=== PATIENT | female | born 1990 | race Two or more races ===

== ENCOUNTER 2016-11-20 08:40 | Emergency (ER) ==
[2016-11-20 08:48] VITALS: BP 123/81; TEMP 98.7; BMI 31.7
--- NOTE | 2016-11-20 09:27 | ED.PDOC ---
General ED Provider: Dr. VIC NOGUEIRA Chief Complaint: Abdominal Pain Stated Complaint: left flank pain x 4 days, began as left inguinal pain 2 weeks ago then migrated up to flank 4 days ago. No dysuria but urine is unusually dark. Nausea, no emesis, no diarrhea. No fever or chills. "Borderline" positive preg test at home, then negative one at health dept, then positive at home. Time Seen by Physician: 09:15 Mode of Arrival: Walk-In Information Source: Patient Exam Limitations: No limitations [facility] Nursing and Triage Documentation Reviewed and Agree: Yes Complaint Exam - Complaint/Exam Patient Complains of: Reports: Pain (in left flank) Onset/Duration: 4 days Symptoms Are: Still present (began as left inguinal pain 2 weeks ago) Timing: Constant Episodes of Voiding Over Last 12 Hours: 4 Initial Severity: Mild Current Severity: Moderate (4/10 pain) Location of Pain: Reports: Left, Flank Character: Reports: Dull Aggravating: Reports: None Alleviating: Reports: Medications (Tylenol and ibuprofen ease pain for a few hours) Associated Signs and Symptoms: Reports: Nausea. Denies: Vomiting Ovarian Torsion Risk Factors: Reports: None Surgical Obstruction Risk Factors: Reports: None RH Status: Unknown Related Surgical History: Reports: None Abdominal Findings: Present: None Differential Diagnoses: Ureteral Stone, UTI (early pyelonephritis) Review of Systems - Review Of Systems Constitutional: Reports: No symptoms Respiratory: Reports: No symptoms Cardiac: Reports: No symptoms GI: Reports: Nausea : Reports: Flank pain, Other (last full menses in early September, spotted for 4 days first week of October) Musculoskeletal: Reports: No symptoms Skin: Reports: No symptoms Neurological: Reports: No symptoms All Other Systems: Reviewed and Negative Past Medical History - Past Medical History Previously Healthy: Yes Endocrine: Reports: None Cardiovascular: Reports: None Respiratory: Reports: None Hematological: Reports: None Gastrointestinal: Reports: None Genitourinary: Reports: None Neuro/Psych: Reports: None Musculoskeletal: Reports: None Cancer: Reports: None Last Menstrual Period: oct 2016 - Surgical History General Surgical History: Reports: None - Family History Family History: Reports: Unknown - Social History Smoking Status: Former smoker Hx Substance Use: No Alcohol Screening: None Lives: Alone - Immunizations Tetanus Shot up to Date: No Influenza Vaccine within 12 Months: No Pneumococcal Vaccine up to Date: No Physical Exam - Physical Exam Appearance: Well-appearing, Well-nourished Ill-appearing: None Pain Distress: Mild Respiratory: Airway patent, Breath sounds clear, Breath sounds equal, Respirations nonlabored Cardiovascular: RRR, Pulses normal, No rub, No murmur GI/: Soft, Nontender (Bimanual exam: no masses or tenderness, negative chandelier's sign), No masses, Bowel sounds normal, No Organomegaly Musculoskeletal: Normal strength, ROM intact, No edema, No calf tenderness Skin: Warm, Dry, Normal color Neurological: Sensation intact, Motor intact, Reflexes intact, Cranial nerves intact, Alert, Oriented Psychiatric: Affect appropriate, Mood appropriate Critical Care Note - Critical Care Note Total Time (mins): 0 Course - Course Hematology/Chemistry: 11/20/16 09:42 11/20/16 09:42 Orders, Labs, Meds: Lab Review 11/20/16 11/20/16 11/20/16 08:55 09:42 09:42 WBC 7.54 RBC 4.31 Hgb 13.3 Hct 38.1 MCV 88.4 MCH 30.9 MCHC 34.9 RDW Coeff of Christopher 12.5 Plt Count 212 Immature Gran % (Auto) 0.3 Neut % (Auto) 57.8 Lymph % (Auto) 31.2 [place] % (Auto) 9.2 Eos % (Auto) 0.8 Baso % (Auto) 0.7 Immature Gran # (Auto) 0.0 Neut # 4.4 Lymph # 2.4 [place] # 0.7 Eos # 0.1 Baso # 0.1 Sodium 139 Potassium 3.5 Chloride 106 Carbon Dioxide 26 Anion Gap 10.5 BUN 8 Creatinine 0.81 Estimated GFR (MDRD) 85.00 BUN/Creatinine Ratio 9.87 Glucose 89 Calcium 9.3 Total Bilirubin 0.42 AST 28 ALT 45 Alkaline Phosphatase 81 Total Protein 7.0 Albumin 3.6 Globulin 3.4 Albumin/Globulin Ratio 1.06 Serum , Qual Urine Color Yellow Urine Clarity Clear Urine pH 7.0 Ur Specific [place] 1.020 Urine Protein Negative Urine Glucose (UA) Negative Urine Ketones Negative Urine Blood Trace-intact Urine Nitrite Negative Urine Bilirubin Negative Urine Urobilinogen 0.2 Ur Leukocyte Esterase Negative Urine Microscopic RBC 0-2 Ur Squamous Epith Cells 0-2 11/20/16 09:42 WBC RBC Hgb Hct MCV MCH MCHC RDW Coeff of Christopher Plt Count Immature Gran % (Auto) Neut % (Auto) Lymph % (Auto) [place] % (Auto) Eos % (Auto) Baso % (Auto) Immature Gran # (Auto) Neut # Lymph # [place] # Eos # Baso # Sodium Potassium Chloride Carbon Dioxide Anion Gap BUN Creatinine Estimated GFR (MDRD) BUN/Creatinine Ratio Glucose Calcium Total Bilirubin AST ALT Alkaline Phosphatase Total Protein Albumin Globulin Albumin/Globulin Ratio Serum , Qual Positive Urine Color Urine Clarity Urine pH Ur Specific [place] Urine Protein Urine Glucose (UA) Urine Ketones Urine Blood Urine Nitrite Urine Bilirubin Urine Urobilinogen Ur Leukocyte Esterase Urine Microscopic RBC Ur Squamous Epith Cells Orders Category Date Time Status CBC W/ AUTO DIFF Stat LAB 11/20/16 09:42 Completed COMPREHENSIVE METABOLIC PANEL Stat LAB 11/20/16 09:42 Completed SERUM TEST [SERUM ] Stat LAB 11/20/16 09:42 Completed URINALYSIS C & S IF INDICATED Stat LAB 11/20/16 08:55 Completed Vital Signs: Temp Pulse Resp BP Pulse Ox 11/20/16 08:41 98.7 F 83 20 123/81 98 Departure - Departure Time of Disposition: 11:00 Disposition: HOME SELF-CARE Discharge Problem: Left flank pain Qualifiers: Weeks of gestation: less than 8 weeks Qualified Code(s): Z3A.01 - Less than 8 weeks gestation of Instructions: Flank Pain (ED) Condition: Good Pt referred to PMD for follow-up: Yes (Follow up with doctor if no better in 3 days and 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
[2016-11-20 09:49] LABS: BASOPHILS # (AUTO) 0.1 K/uL (0-0.2); BASOPHILS % (AUTO) 0.7 % (0.0-3.0); EOSINOPHILS # (AUTO) 0.1 K/ul (0.0-0.7); EOSINOPHILS % (AUTO) 0.8 % (0.0-7.0); HEMATOCRIT 38.1 % (37.0-47.0); HEMOGLOBIN 13.3 g/dl (12.0-16.0); IMMATURE GRANULOCYTE % (AUTO) 0.3 % (0.0-5.0); LYMPHOCYTES # (AUTO) 2.4 K/uL (0.60-3.4); LYMPHOCYTES % (AUTO) 31.2 (10.0-50.0); MEAN CORPUSCULAR HEMOGLOBIN 30.9 pg (27.0-31.0); MEAN CORPUSCULAR HGB CONC 34.9 (31.8-35.4); MEAN CORPUSCULAR VOLUME 88.4 fl (81.0-99.0); MONOCYTES # (AUTO) 0.7 K/uL (0.4-2.0); MONOCYTES % (AUTO) 9.2 (0-10); NEUTROPHILS # (AUTO) 4.4 K/ul (2.0-6.9); NEUTROPHILS % (AUTO) 57.8; PLATELET COUNT 212 10^3/uL (140-440); RED BLOOD COUNT 4.31 10^6/ul (4.20-5.40); WHITE BLOOD COUNT 7.54 K/ul (4.6-10.2)
[2016-11-20 09:50] LABS: BILIRUBIN,URINE Negative (NEGATIVE); KETONES,URINE Negative (NEGATIVE); LEUKOCYTE ESTERASE ,URINE Negative (NEGATIVE); NITRITE,URINE Negative (NEGATIVE); PROTEIN,URINE Negative (NEGATIVE); URINE, BLOOD Trace-intact (NEGATIVE)
[2016-11-20 09:52] LABS: ADD URINE MICROSCOPIC YES
[2016-11-20 10:00] LABS: SERUM PREGNANCY INTERNAL QC INTERNAL QC VALID
[2016-11-20 10:06] LABS: ALBUMIN 3.6 g/dL (3.4-5.0); ALBUMIN/GLOBULIN RATIO 1.06; ANION GAP 10.5; BILIRUBIN,TOTAL 0.42 mg/dL (0.00-1.20); BUN/CREATININE RATIO 9.87; CALCIUM 9.3 mg/dL (8.2-10.2); CREATININE 0.81 mg/dL (0.60-1.30); POTASSIUM 3.5 mmol/L (3.5-5.10)
== END 2016-11-20 11:07 | disposition home or self-care (01) ==
LOC: ED 08:40
DX: R10.9 Unspecified abdominal pain (principal); Z3A.01 Less than 8 weeks gestation of pregnancy
CPT/HCPCS: 36415; 80053; 81001; 84703; 85025; 99283

== ENCOUNTER 2016-12-03 10:23 | Outpatient (CLI) ==
[2016-12-03 10:43] LABS: BASOPHILS % (AUTO) 0.4 % (0.0-3.0); EOSINOPHILS # (AUTO) 0.1 K/ul (0.0-0.7); EOSINOPHILS % (AUTO) 0.9 % (0.0-7.0); HEMATOCRIT 41.2 % (37.0-47.0); HEMOGLOBIN 14.3 g/dl (12.0-16.0); IMMATURE GRANULOCYTE % (AUTO) 0.1 % (0.0-5.0); LYMPHOCYTES % (AUTO) 37.8 (10.0-50.0); MEAN CORPUSCULAR HEMOGLOBIN 30.7 pg (27.0-31.0); MEAN CORPUSCULAR HGB CONC 34.7 (31.8-35.4); MEAN CORPUSCULAR VOLUME 88.4 fl (81.0-99.0); MONOCYTES # (AUTO) 0.8 K/uL (0.4-2.0); MONOCYTES % (AUTO) 9.5 (0-10); NEUTROPHILS # (AUTO) 4.1 K/ul (2.0-6.9); NEUTROPHILS % (AUTO) 51.3; PLATELET COUNT 231 10^3/uL (140-440); RED BLOOD COUNT 4.66 10^6/ul (4.20-5.40); WHITE BLOOD COUNT 7.93 K/ul (4.6-10.2)
[2016-12-03 10:59] LABS: URINE PREGNANCY INTERNAL QC INTERNAL QC VALID
[2016-12-03 11:01] LABS: ALBUMIN/GLOBULIN RATIO 1.14; ANION GAP 13.1; BILIRUBIN,TOTAL 0.4 mg/dL (0.00-1.20); BUN/CREATININE RATIO 10.11; CALCIUM 9.7 mg/dL (8.2-10.2); CREATININE 0.89 mg/dL (0.60-1.30); POTASSIUM 4.1 mmol/L (3.5-5.10); TOTAL PROTEIN 7.5 g/dL (6.4-8.2)
--- NOTE | 2016-12-03 11:47 | CT ---
EXAM: CT abdomen with and without contrast. CT pelvis with and without contrast. HISTORY: Left-sided abdominal pain. Chest pain. COMPARISON: None available. TECHNIQUE: Multiple axial images of the abdomen and pelvis were obtained prior to and following intr avenous administration of 75 mL of Omnipaque 350, low osmolar. Images reformatted in the coronal [place]. FINDINGS: The lung bases are clear. No acute osseous abnormality identified. The liver, gallbladder, pancreas, spleen, adrenal glands, and kidneys are unremarkable. No calcified renal stones or hydronephrosis detected. The bowel is normal in course and caliber without evidence for obstruction or inflammatory process. Appendix is normal. Uterus demonstrates normal contour. Urinary bladder is collapsed. Phleboliths noted in the pelvis. No free fluid, free air or lymphadenopathy identified. There is a small fat-co ntaining umbilical hernia. IMPRESSION: No acute abnormality within the abdomen or pelvis.
--- NOTE | 2016-12-03 12:36 | DI ---
EXAM: Chest two view, frontal and lateral views. HISTORY: Generalized abdominal pain. COMPARISON: 11/12/2008. FINDINGS: The heart size is normal. There is no pulmonary vascular congestion. The lungs are clear . No pleural effusion or pneumothorax is seen. No acute osseous abnormality identified. Since the prior study, there has been no significant interval change. IMPRESSION: No acute cardiopulmonary process.
== END 2016-12-03 10:24 | disposition home or self-care (01) ==
LOC: RAD 10:23
PROVIDERS: ATTEND Nurse Practitioner Family
DX: R10.84 Generalized abdominal pain (principal); N96 Recurrent pregnancy loss; Y63.3 Inadvertent exposure of patient to radiation during medical care
CPT/HCPCS: 36415; 80053; 81025; 82150; 83690; 85025; 93005; 93010

== ENCOUNTER 2016-12-11 06:34 | Outpatient (CLI) ==
--- NOTE | 2016-12-11 09:18 | ECHOSTRESS ---
Date of Exam: 12/11/16 Ordering Physician: JUAN PABLO LUNSFORD Reason for Echo: ABNORMAL EKG, STRESS TEST--NO ISCHEMIA M-Mode Normal Adult Results LV Dimensions Normal Adult Results AoV Opening excursions >1.6 LVEDD-base- 3.5-5.8 Ao root dimensions 2.0-3.7 LVESD-base- 3.1-4.6 L. Atrium dimensions 1.9-3.8 Post. Wall thickness 0.8-1.1 IV septum (thickness) 0.7-1.2 Post. Wall excursion 0.72-1.3 Septal motion Systolic motion R. Ventricular cavity 1.5-2.0 LVEF 60% Paradoxical septal wall motion 2-D: NORMAL LEFT VENTRICULAR CONTRACTILITY--RESTING AND POST EXERCISE M-MODE: MV: AV: TV: PV: CHAMBER SIZE: WALL MOTION: NORMAL LEFT VENTRICULAR CONTRACTILITY--RESTING AND POST EXERCISE PERICARDIUM: INTERPRETATION: 1. NORMAL LEFT VENTRICULAR CONTRACTILITY--RESTING AND POST EXERCISE MTDD
--- NOTE | 2016-12-11 09:25 | STRESSECHO ---
Date of Test: 12/11/16 Reason for Exam: ABNORMAL EKG, CHEST PAIN, DIZZY SPELLS Ordering Physician: JUAN PABLO LUNSFORD Physical Findings: S1, S2, NO S3 Resting EKG: SINUS RHYTHM/ NO ACUTE CHANGES Target Heart Rate: 164/194 STAGE MPH/GRADE HEART RATE BPM BLOOD PRESSURE mmhg RHYTHM S-T SEGMENT +/- UP DOWN SYMPTOMS,COMMENTS At Rest 70 110/82 SR X NONE 1 1.7/10% 115 120/80 SR X NONE 2 2.5/12% 135 SR X NONE 3 3.4/14% 4 4.2/16% 5 5.0/18% Immediately after 150 120/80 SR X FATIGUE Durations of Exercise: 8:00 Maximum Heart Rate Reached: 150 BPM Reason for Termination: FATIGUE 4 MINUTES POST EXERCISE: HR 80 BPM, SR, +/- INTERPRETATION: OXYGEN SATURATION 98% ON ROOM AIR METS 10.1 1. NO EVIDENCE OF ISCHEMIA BY ST-T WAVE 2. NO CHEST PAIN OR DISCOMFORT 3. NO ARRHYTHMIAS 4. BLOOD PRESSURE RESPONSE: NORMAL NORMAL LEFT VENTRICULAR CONTRACTILITY--RESTING AND POST EXERCISE MTDD
== END 2016-12-11 06:35 | disposition home or self-care (01) ==
LOC: CAR 06:34
PROVIDERS: ATTEND Nurse Practitioner Family
DX: R94.31 Abnormal electrocardiogram [ECG] [EKG] (principal)

== ENCOUNTER 2016-12-19 10:29 | Outpatient (CLI) | END 2016-12-19 10:30 | disposition home or self-care (01) | LOC: LAB 10:29 | PROVIDERS: ATTEND Obstetrics & Gynecology | DX: O02.1 Missed abortion (principal) | CPT/HCPCS: 36415; 84702 ==

== ENCOUNTER 2017-02-22 11:31 | Outpatient (CLI) | END 2017-02-22 11:32 | disposition home or self-care (01) | LOC: LAB 11:31 | PROVIDERS: ATTEND Nurse Practitioner Family | DX: R50.9 Fever, unspecified (principal); R52 Pain, unspecified | CPT/HCPCS: 87502 ==

== ENCOUNTER 2017-05-02 09:19 | Outpatient (CLI) | END 2017-05-02 09:20 | disposition home or self-care (01) | LOC: RHC-LAB 09:19 | PROVIDERS: ATTEND Emergency Medicine | DX: R68.89 Other general symptoms and signs (principal); O03.9 Complete or unspecified spontaneous abortion without complication; J06.9 Acute upper respiratory infection, unspecified | CPT/HCPCS: 36415; 80053; 85025; 87804 ==

== ENCOUNTER 2017-05-24 15:10 | Outpatient (CLI) | END 2017-05-24 15:11 | disposition home or self-care (01) | LOC: LAB 15:10 | PROVIDERS: ATTEND Obstetrics & Gynecology | DX: O26.20 Pregnancy care for patient with recurrent pregnancy loss, unspecified trimester (principal) | CPT/HCPCS: 36415; 84144 ==

== ENCOUNTER 2017-05-28 11:48 | Outpatient (CLI) | END 2017-05-28 11:49 | disposition home or self-care (01) | LOC: LAB 11:48 | PROVIDERS: ATTEND Obstetrics & Gynecology | DX: N96 Recurrent pregnancy loss (principal) | CPT/HCPCS: 36415; 84702 ==

== ENCOUNTER 2017-06-27 12:39 | Outpatient (CLI) | END 2017-06-27 12:40 | disposition home or self-care (01) | LOC: LAB 12:39 | PROVIDERS: ATTEND Obstetrics & Gynecology | DX: N96 Recurrent pregnancy loss (principal) | CPT/HCPCS: 36415; 84702 ==

== ENCOUNTER 2017-06-29 12:35 | Outpatient (CLI) | END 2017-06-29 12:36 | disposition home or self-care (01) | LOC: LAB 12:35 | PROVIDERS: ATTEND Obstetrics & Gynecology | DX: N93.9 Abnormal uterine and vaginal bleeding, unspecified (principal); N92.5 Other specified irregular menstruation | CPT/HCPCS: 36415; 84702 ==

== ENCOUNTER 2017-07-08 07:58 | Emergency (ER) ==
[2017-07-08 08:21] VITALS: BP 118/76; TEMP 97.8
--- NOTE | 2017-07-08 09:48 | ED.PDOC ---
General ED Provider: Dr. ANTHONY JUAREZ Chief Complaint: Back Pain Stated Complaint: BACK PAIN Time Seen by Physician: 08:13 (SEEN WITH KANDACE AT ALL TIMES ) Mode of Arrival: Walk-In Information Source: Patient Exam Limitations: No limitations Nursing and Triage Documentation Reviewed and Agree: Yes Reviewed sepsis parameters & appropriate labs ordered?: Yes System Inflammatory Response Syndrome: Not Applicable Sepsis Protocol: For patient's 13 years and over: Temp is 96.8 and below OR 101 and greater Pulse >90 BPM Resp >20/minute Acutely Altered Mental Status Are patient's symptoms suggestive of a new infection, such as: -Pneumonia -Skin, Soft Tissue -Endocarditis -UTI -Bone, Joint Infection -Implantable Device -Acute Abdominal Infection -Wound Infection -Meningitis -Blood Stream Catheter Infection -Unknown System Inflammatory Response Syndrome: Not Applicable Musculoskeletal Complaint Exam - Back Pain Complaint/Exam Mechanism of Injury: Reports: No known trauma, Other (PT IS UNDER 5 WEEK) Onset/Duration: 4 DAYS Symptoms Are: Still present Timing: Intermittent Episodes Lasting: Minutes Initial Severity: Mild Current Severity: Mild Location: Reports: Discrete Character: Reports: Aching Aggravating: Reports: Movements Alleviating: Reports: Rest Associated Signs and Symptoms: Denies: Swelling, Redness, Bruising, Fever, Weakness, Numbness, Tingling, Abdominal pain, Flank pain, Bladder incontinence, Bowel incontinence, Weight loss, Pain with weight bearing TAD Risk Factors: Reports: None AAA Risk Factors: Reports: None Cauda Equina Risk Factors: Reports: None Epidural Abcess Risk Factors: Reports: None Focal Tenderness: No Paraspinal Muscle Tenderness: No Paraspinal Muscle Spasm: No Scoliosis: No Lordosis: No Kyphosis: No SLR Test: Right Negative, Left Negative Hip Motion Testing Pain: Right Negative, Left Negative Focal Weakness: Present: None Focal Sensory Loss: Present: None Gait: Present: Normal Differential Diagnoses: Strain, Sprain Review of Systems - Review Of Systems Constitutional: Reports: No symptoms Eyes: Reports: No symptoms Ears, Nose, Mouth, Throat: Reports: No symptoms Respiratory: Reports: No symptoms Cardiac: Reports: No symptoms GI: Reports: No symptoms : Reports: No symptoms Musculoskeletal: Reports: Back pain (NONE INJURY) Skin: Reports: No symptoms Neurological: Reports: No symptoms Endocrine: Reports: No symptoms Hematologic/Lymphatic: Reports: No symptoms All Other Systems: Reviewed and Negative Past Medical History - Past Medical History Previously Healthy: Yes Endocrine: Reports: None Cardiovascular: Reports: None Respiratory: Reports: None Hematological: Reports: None Gastrointestinal: Reports: None Genitourinary: Reports: None Neuro/Psych: Reports: None Musculoskeletal: Reports: None Cancer: Reports: None Last Menstrual Period: 05/31/17 - Surgical History General Surgical History: Reports: None - Family History Family History: Reports: Unknown - Social History Smoking Status: Former smoker Hx Substance Use: No Alcohol Screening: None - Immunizations Influenza Vaccine within 12 Months: No Pneumococcal Vaccine up to Date: No Physical Exam - Physical Exam Appearance: Well-appearing, No pain distress, Well-nourished Eyes: GLADYS, EOMI, Conjunctiva clear ENT: Ears normal, Nose normal, Oropharynx normal Respiratory: Airway patent, Breath sounds clear, Breath sounds equal, Respirations nonlabored Cardiovascular: RRR, Pulses normal, No rub, No murmur GI/: Soft, Nontender, No masses, Bowel sounds normal, No Organomegaly Musculoskeletal: Normal strength, ROM intact, No edema, No calf tenderness Skin: Warm, Dry, Normal color Neurological: Sensation intact, Motor intact, Reflexes intact, Cranial nerves intact, Alert, Oriented Psychiatric: Affect appropriate, Mood appropriate Critical Care Note - Critical Care Note Total Time (mins): 0 Course - Course Hematology/Chemistry: 07/08/17 08:30 07/08/17 08:30 Orders, Labs, Meds: Lab Review 07/08/17 07/08/17 07/08/17 08:30 08:30 08:30 WBC 9.11 RBC 4.31 Hgb 13.5 Hct 38.5 MCV 89.3 MCH 31.3 H MCHC 35.1 RDW Coeff of Christopher 12.2 Plt Count 215 Immature Gran % (Auto) 0.2 Neut % (Auto) 64.0 Lymph % (Auto) 26.6 [place] % (Auto) 7.9 Eos % (Auto) 0.9 Baso % (Auto) 0.4 Immature Gran # (Auto) 0.0 Neut # (Auto) 5.8 Lymph # (Auto) 2.4 [place] # (Auto) 0.7 Eos # (Auto) 0.1 Baso # (Auto) 0.0 Sodium 138 Potassium 3.5 Chloride 106 Carbon Dioxide 22 Anion Gap 13.5 BUN 6 L Creatinine 0.79 Estimated GFR (MDRD) 87.00 BUN/Creatinine Ratio 7.59 Glucose 101 Lactic Acid 9.0 Calcium 9.5 Total Bilirubin 0.4 AST 29 ALT 55 Alkaline Phosphatase 93 Total Protein 7.4 Albumin 3.8 Globulin 3.6 Albumin/Globulin Ratio 1.06 Procalcitonin HCG, Quant 6075.65 Urine Color Urine Clarity Urine pH Ur Specific [place] Urine Protein Urine Glucose (UA) Urine Ketones Urine Blood Urine Nitrite Urine Bilirubin Urine Urobilinogen Ur Leukocyte Esterase 07/08/17 07/08/17 08:30 08:47 WBC RBC Hgb Hct MCV MCH MCHC RDW Coeff of Christopher Plt Count Immature Gran % (Auto) Neut % (Auto) Lymph % (Auto) [place] % (Auto) Eos % (Auto) Baso % (Auto) Immature Gran # (Auto) Neut # (Auto) Lymph # (Auto) [place] # (Auto) Eos # (Auto) Baso # (Auto) Sodium Potassium Chloride Carbon Dioxide Anion Gap BUN Creatinine Estimated GFR (MDRD) BUN/Creatinine Ratio Glucose Lactic Acid Calcium Total Bilirubin AST ALT Alkaline Phosphatase Total Protein Albumin Globulin Albumin/Globulin Ratio Procalcitonin < 0.05 HCG, Quant Urine Color Yellow Urine Clarity Clear Urine pH 7.0 Ur Specific [place] 1.015 Urine Protein Negative Urine Glucose (UA) Negative Urine Ketones Negative Urine Blood Negative Urine Nitrite Negative Urine Bilirubin Negative Urine Urobilinogen 0.2 Ur Leukocyte Esterase Negative Orders Category Date Time Status BLOOD CULTURE (ED ONLY) Stat LAB 07/08/17 08:30 Received CBC W/ AUTO DIFF Stat LAB 07/08/17 08:30 Completed COMPREHENSIVE METABOLIC PANEL Stat LAB 07/08/17 08:30 Completed HCG,QUANTITATIVE Stat LAB 07/08/17 08:30 Completed LACTIC ACID Stat LAB 07/08/17 08:30 Completed PROCALCITONIN Stat LAB 07/08/17 08:30 Completed URINALYSIS C & S IF INDICATED Stat LAB 07/08/17 08:47 Completed Vital Signs: Temp Pulse Resp BP Pulse Ox 07/08/17 08:11 97.8 F 72 16 118/76 100 Departure - Departure Time of Disposition: 09:49 (D/C INSTRUCTIONS GIVEN WITH KANDACE RASCON LABS FULLY DISCUSSED AND COPIES GIVEN) Disposition: HOME SELF-CARE Discharge Problem: Backache Qualifiers: Weeks of gestation: unspecified Qualified Code(s): Z34.90 - Encounter for supervision of normal , unspecified, unspecified trimester Instructions: Back Pain (ED), (ED) Condition: Good Pt referred to PMD for follow-up: Yes IPMP verified?: No Additional Instructions: Please call your Family Physician as soon as possible to schedule a follow-up appointment. Allergies/Adverse Reactions: Allergies Penicillins Adverse Reaction (Verified 07/08/17 08:08) Home Medications: Ambulatory Orders Aspirin 81 mg PO DAILY 07/08/17 21/Iron Fu/Folic Acid [ Complete [place]] 1 each PO DAILY Progesterone, Micronized [Progesterone] 100 mg PO DAILY 07/08/17 Disposition Discussed With: Patient
== END 2017-07-08 10:00 | disposition home or self-care (01) ==
LOC: ED 07:58
DX: M54.9 Dorsalgia, unspecified (principal); Z34.90 Encounter for supervision of normal pregnancy, unspecified, unspecified trimester
CPT/HCPCS: 36415; 80053; 81001; 83605; 84145; 84702; 85025; 87040; 99283